=== PATIENT | female | born 1985 | race American Indian/Alaskan Native ===

== ENCOUNTER 2016-07-31 10:54 | Inpatient (IN) | payer OTHER ==
[~2016-07-31] VITALS: Ht 167.6 cm; Wt 87.5 kg
[2016-07-31] MEDS ORDERED: PRENAT PO (11:21)
[2016-07-31] MEDS ORDERED: RANI150T9 PO (11:22)
[2016-07-31 11:24] VITALS: BP 116/69; PULSE 82; RESP 20; Ht 167.6 cm; Wt 87.5 kg
[2016-07-31] MEDS ORDERED: TERBUTALINE 0 ML ONE (11:29)
[2016-07-31] MEDS ORDERED: TERBUTALINE 1 MG/ML INJ SC ONE (11:30)
[2016-07-31] MEDS ORDERED: LIDOCAINE 1% (MPF) 30 ML INJ INJ PRN (12:00)
[2016-07-31] MEDS ORDERED: LACTATED RINGER'S 1,000 ML IV ONE (12:00)
[2016-07-31] MEDS ORDERED: MISOPROSTOL 200 MCG TAB PR PRN (12:00)
[2016-07-31] MEDS ORDERED: OXYTOCIN 30 UNITS/LR 500 ML IV PRN (12:00)
[2016-07-31] MEDS ORDERED: IBUPROFEN 600 MG TAB PO PRN (12:00)
[2016-07-31] MEDS ORDERED: METHYLERGONOVINE 0.2 MG INJ IM PRN (12:00)
[2016-07-31] MEDS ORDERED: CARBOPROST 250 MCG INJ IM PRN (12:00)
[2016-07-31] MEDS ORDERED: LACTATED RINGER'S 1,000 ML IV PRN (12:15)
[2016-07-31 12:20] LABS: ADD SCAN DIFF NO
[2016-07-31 12:22] LABS: BASOPHILS % 0.4 % (0.0-2.0); EOSINOPHILS # 0.3 10^3/ul (0.0-0.5); EOSINOPHILS % 3.6 % (0.0-7.0); HEMATOCRIT 33.6 % (37.0-47.0); HEMOGLOBIN 12.2 g/dl (12.0-16.0); LYMPHOCYTES # 1.1 10^3/ul (0.8-2.9); LYMPHOCYTES % 13.3 % (15.0-51.0); MEAN CORPUSCULAR HEMOGLOBIN 33.4 pg (29.0-33.0); MEAN CORPUSCULAR HGB CONC 36.3 g/dl (32.0-37.0); MEAN CORPUSCULAR VOLUME 92.1 fl (82.0-101.0); MONOCYTE # 0.7 10^3/ul (0.3-0.9); MONOCYTES % 8.4 % (0.0-11.0); NEUTROPHIL # 6.1 10^3/ul (1.6-7.5); NEUTROPHILS % 73.8 % (39.0-77.0); PLATELET COUNT 177 10^3/UL (140-415); RED BLOOD COUNT 3.65 10^6/ul (4.20-5.40); RED CELL DISTRIBUTION WIDTH 13.1 % (11.5-14.5); WHITE BLOOD COUNT 8.2 10^3/ul (4.8-10.8)
[2016-07-31 12:26] LABS: INR 0.9; PROTIME 12.1 Sec (12.2-14.2); PT RATIO 0.9
[2016-07-31 12:27] LABS: PARTIAL THROMBOPLASTIN TIME 25.1 Sec (25.0-35.0)
--- NOTE | 2016-07-31 12:58 | RADRPT ---
PROCEDURE: Obstetrical ultrasound CLINICAL INDICATION: VARIABLES/POSSIBLE CAESAREAN SECTION TECHNIQUE: Multiple sonographic images of the pelvis were obtained. The images were reviewed on a PACS workstation. COMPARISON: None FINDINGS: The cervix is not well visualized. There is a single viable intrauterine gestation. Cardiac activity is present with 128 beats per minute. There is a cephalic presentation. The placenta is anterior. There is no evidence for an abruption or placenta previa. There is a subjectively normal amount of amniotic fluid. Measurements were made in order to determine age. The results are as follows (cm): BPD =8.66 HC =31.98 AC =34.20 FL =7.36 Estimated gestational age by ultrasound of approximately 36 weeks, 5 days. The estimated date of delivery by ultrasound is 08/23/2016. Estimated gestational age by LMP of approximately 38 weeks, 1 day. The estimated date of delivery by LMP is 08/13/2016. EFW = 3191 grams (42nd percentile) IMPRESSION: Single viable intrauterine gestation of approximately 36 weeks, 5 days . The estimated date of delivery is 08/23/2016 . Dating by ultrasound is within 10 days of dating by LMP. Cephalic presentation. Estimated weight is in the 42nd percentile. RPTAT: EE Physician Inessa Date Time Electronically viewed and signed by Physician Inessa on 07/31/2016 12:57 /
[2016-07-31] MEDS: LACTATED RINGER'S 1,000 ML IV SCH (13:12)
--- NOTE | 2016-07-31 13:29 | NSTRPT ---
NST Information Datetime Report Generated by CPN: 07/31/2016 13:29 Datetime: 07/31/2016 08:25 NST Information EGA: 38.1 Test Number: 5 Time on Monitor: 07/31/2016 08:43 Time off Monitor: 07/31/2016 10:33 NST Duration (Min): 110 Reason for NST: Diabetes Mellitus; Other Reason for NST Other: A1DM Test and Monitor Explained: Monitor Explained; Test Explained; Verbalized Understanding Pulse: 93 Resp: 18 SBP: 106 DBP: 74 Test Evaluation NST Interventions: Reposition Patient Contraction Frequency: Q5-10, PT STATES MILD FHR Baseline : 130 Variability: Moderate 6-25bpm Accelerations: 15X15 Decelerations: Variable FHR Category: Category II NST Results: Non-Reactive Comments: To u/s 11.4 CM, CEPH. AT BEDSIDE FOR VARIABLE TO 60 BPM FOR 4 MINUTES, PT MOVED FROM SONIA E TO SIDE, FHTS RETURN TO BASELINE WITH MOD VARIABLILITY AND ADDCELS TO FOLLOW. DR CARBALLO REVIED STR IP, RECOMMENDS EXTENDED MONITORING AND EVALUATE FOR LABOR, 1025-Report to woo Armendariz Dr's recommendations, orders received. POC discussed with pt, states understanding. Report called to Paulina SOTO, triage. 1045-Pt to triage, accomp by Lovely alvarez. Electronically Signed By E-Signature: with User ID: [id number], Addendum/Amendment: The majority of the heart rate pattern is reassuring. There is one decleration to 60bpm lasting, in total 6 minutes. Recommend prolonged monitoring, possible delivery if the dec eleration recurs or the patient progresses in labor Datetime: 07/27/2016 08:31 NST Information EGA: 37.4 NST Duration (Min): 24 Datetime: 07/25/2016 08:31 NST Information EGA: 37.2 NST Duration (Min): 26 Datetime: 07/20/2016 08:19 NST Information EGA: 36.4 NST Duration (Min): 20 Datetime: 07/17/2016 15:15 NST Information EGA: 36.1
--- NOTE | 2016-07-31 13:50 | HP ---
Date/Time of Note Date/Time of Note DATE: 07/31/16 TIME: 13:49 OB - History Hx of Present Free Text/Dictation @38+WKS GA WITH VARIABLES : 2 Para: 1 Care: Good Care Ultrasounds: Normal mid trimester US Obstetrical Complications: None Medical Complications: None Past Family/Social History * Past Medical, Surgical, Family and Obstetric Histories reviewed from chart. OB Admission Exam Vital Signs Vital Signs Vital Signs Date Time Temp Pulse Resp B/P Pulse Ox O2 Delivery O2 Flow Rate FiO2 07/31/16 11:24 98.7 82 20 116/69 Non Rebreather 15.0 Physical Exam Abdomen: WNL Extremities: Normal Membranes: Intact Heart Rate: 140's Accelerations: Accelerations Present Decelerations: Variable Decelerations Varibility: Moderate Contractions on Admission: >10 Minutes Apart Last 72 hours Lab Results CBC & BMP 07/31/16 11:30 OB Assessment/Plan Reason for admission: observation Plan: Expectant Management ANKUSH CONSTANTINO M.D. Jul 31, 2016 13:50
--- NOTE | 2016-07-31 15:01 | RADRPT ---
PROCEDURE: OB ultrasound for biophysical profile CLINICAL INDICATION: Labor. TECHNIQUE: Multiple sonographic images of the pelvis were obtained. Transabdominal view of the gr avid uterus are available for review. The images were reviewed on a PACS workstation. COMPARISON: OB ultrasound 07/31/2016. OB ultrasound 07/27/2016. FINDINGS: breathing movement = 2/2 tone = 2/2 motion = 2/2 HAYLEY = 2/2 HAYLEY = 8.5 cm Single live intrauterine with cardiac activity. heart rate equals 150 beats p er minute. Presentation is cephalic. The placenta is anterior. IMPRESSION: 1. Single viable intrauterine gestation. 2. Biophysical profile = 8/8. 3. HAYLEY = 8.5 cm. RPTAT: KK .Samuel Quiles MD, MD Date Time Electronically viewed and signed by .Samuel Quiles MD, MD on 07/31/2016 15:01 .B/
[2016-07-31] MEDS ORDERED: ACETAMINOPHEN 325 MG TAB PO PRN (16:00)
[2016-07-31] MEDS ORDERED: ALUMINUM HYDROXIDE 30 ML CUP PO PRN (16:30)
[2016-07-31] MEDS ORDERED: FENTAnyl 2MCG/ML-ROPIV 0.2% 100 ML ONE (23:03)
[2016-07-31] MEDS ORDERED: TERBUTALINE 1 ML ONE (23:17)
[2016-07-31] MEDS ORDERED: LIDOCAINE 2% (SDV) 5 ML INJ ONE (23:26)
[2016-07-31] MEDS ORDERED: CEFAZOLIN 1 GM INJ ONE (23:28)
[2016-07-31] MEDS ORDERED: OXYTOCIN 10 UNIT INJ ONE (23:32)
[2016-07-31] MEDS ORDERED: DEXAMETHASONE 4 MG/ML 1 ML INJ ONE (23:35)
[2016-07-31] MEDS ORDERED: ONDANSETRON 4 MG INJ ONE (23:35)
[2016-07-31] MEDS ORDERED: PHENYLephrine (100 MCG/ML) 5ML SYG ONE (23:35)
[2016-07-31] MEDS ORDERED: morphine SULFATE/PF (10 MG/10 ML) INJ ONE (23:35)
[2016-07-31] MEDS ORDERED: METOCLOPRAMIDE 10 MG INJ ONE (23:35)
[2016-07-31] MEDS ORDERED: KETOROLAC 30 MG INJ ONE (23:35)
[2016-08-01] MEDS ORDERED: HYDROmorphONE 1 MG/ML SYG IV PRN ×2
[2016-08-01] MEDS ORDERED: KETOROLAC 30 MG INJ IV PRN
[2016-08-01] MEDS ORDERED: NALOXONE (0.4 MG/ML) INJ IV PRN ×2
[2016-08-01] MEDS ORDERED: ACETAMINOPHEN 500 MG TAB PO PRN
[2016-08-01] MEDS ORDERED: morphine 4 MG/ML VIAL IV PRN
[2016-08-01] MEDS ORDERED: NALBUPHINE HCL (10 MG/1 ML) INJ IV PRN
[2016-08-01] MEDS ORDERED: morphine 2 MG INJ IV PRN
[2016-08-01] MEDS ORDERED: FENTAnyl 2MCG/ML-ROPIV 0.2% 100 ML BAG EPI SCH
[2016-08-01] MEDS ORDERED: HYDROCODONE/APAP (5/325) TAB PO PRN
[2016-08-01] MEDS ORDERED: PHENYLephrine (100 MCG/ML) 5ML SYG ONE (00:01)
--- NOTE | 2016-08-01 02:36 | QN ---
Documentation Comment preop note 30y.o A1(sab) at 38w1d was sent from antepartum test for extended observation for variable decelerations During the observation uterine activities noted , admitted for expectant mangement called for evaluation for prolonged variable deceleration down to 70's for 4min VE 3-4cm70%-2 post membrane bulging labor epidural was given , right after epidural given , another episode of prolonged deceleration down to 60's continuosly failed to return. emergency primary section was called. PERRY CHAUDHARI MD Aug 01, 2016 02:36
[2016-08-01] MEDS: DIPHENHYDRAMINE 50 MG INJ IV PRN ×2 (02:56→07:26)
--- NOTE | 2016-08-01 03:10 | PREOPHP ---
DATE OF ADMISSION: 07/31/2016 HISTORY OF PRESENT ILLNESS: This is a 30-year-old 3, para 1, abortus 1 which was spontaneou s, expected date of confinement was 08/14/2015. She was sent from the antepartum test room for the variable deceleration for the extended observation. During the observation, external monitor reveal ed was having contractions. The patient was transferred to the L and D. After the patient was wilkerson sferred to the L and D, there was profound deceleration down to 60s approximately 4 minutes and then recovered and maintain the baseline. Another small episode and the cervical examination revealed a t that time 3 to 4 cm, about 70% effaced, -2 and the cervix was posterior and then a couple of hours later, the patient had another episode of variable deceleration this time down to 60s and did not c ome up to the baseline actually, it was a prolonged variable deceleration profound, and the emergenc y section was called, and consent was obtained and the primary section was prepare d for the category 3. Dictated By: MARIO THOMAS/ML Conf#: [id number] DID#: [id number]
--- NOTE | 2016-08-01 03:26 | OPR ---
DATE OF OPERATION: 07/31/2016 PREOPERATIVE DIAGNOSIS: , 38 weeks 1 day, category 3. POSTOPERATIVE DIAGNOSIS: Delivered normal male , 8 and 9. OPERATION PROCEDURE: Primary low transverse section. ANESTHESIA: Epidural. ANESTHESIOLOGIST: Dr. Acevedo SURGEON: Nataly Friedman MD [employer]ICING CONSULTANT: Dr. Marlow ESTIMATED BLOOD LOSS: Approximately 700 mL PROCEDURE: The patient was taken to the OR in the emergency right after the epidural was given for the labor epidural and the heartbeat went down to 60s and did not recover. The patient was taken to the OR immediately, and emergency primary section was prepared. After the Mendez was inser home and abdominal wall was prepped with Betadine solution and draped, low Pfannenstiel incision was made. The incision was carried down through the subcutaneous tissue to the anterior recti fascia wh ich was incised transversely in length of the incision. The fascial flap was created and 2 rectus m uscles split in midline. The peritoneal cavity was entered. The low portion of the uterus was expo sed, and the transverse incision was made above the uterovesical reflection and carried down layer b y layer until reached the amniotic membrane and revealing clear amniotic fluid in moderate amount. A normal male infant was born in left occiput transverse position. Mouth and nose were cleaned, del ayed cord clamp done, and handed to the respiratory care personnel for further care. There was no c ord tangled around the neck. Only appeared to have a loop of cord that was between the length. The placenta was removed after cord blood was obtained, and then uterus was exteriorized and the uterin e cavity was explored. The uterine incision was closed using #1 chromic catgut in continuous interl ocking manner and second layer using 0 chromic catgut. There were multiple areas of bleeding. The sinus was really big, and each time the uterine rent started bleeding, even on the right aspect of t he incision, it was closed multiple times to control the bleeding. The uterus was relocated in the abdominal cavity after the incision was closed and rechecked for the bleeders. There was a little o ozing which was delivered out again and we controlled with additional suture. Abdominal cavity was irrigated and sponge count correct. The parietal peritoneum was closed using 0 chromic catgut in co ntinuous manner, muscle closed with 0 chromic catgut in continuous manner. Fascia closed with #1 Vi cryl in 2 segments. The subcutaneous tissue was irrigated with water. This layer was approximated with a 2-0 plain. Skin closed with Insorb. Pressure dressing applied. Estimated blood loss approx imately 700 mL. The patient withstood procedure well and was sent to recovery room in good conditio n. Dictated By: NATALY THOMAS/ML Conf#: [id number] DID#: [id number]
[2016-08-01] MEDS: LACTATED RINGER'S 1,000 ML IV SCH ×3 (04:31→21:30)
[2016-08-01 05:00] VITALS: BP 110/75; PULSE 81; RESP 18
--- NOTE | 2016-08-01 05:16 | OPPN ---
Date/Time of Note Date/Time of Note DATE: 08/01/16 TIME: 05:16 Post-Anesthesia Notes Post-Anesthesia Note Last documented vital signs Vital Signs Date Time Temp Pulse Resp B/P Pulse Ox O2 Delivery O2 Flow Rate FiO2 07/31/16 11:24 98.7 82 20 116/69 Non Rebreather 15.0 Activity: WNL Respiratory function: WNL Cardiovascular function: WNL Mental status: Baseline Pain reasonably controlled: Yes Hydration appropriate: Yes Nausea/Vomiting absent: Yes OLIVE POWERS MD Aug 01, 2016 05:16
[2016-08-01] MEDS ORDERED: ZOLPIDEM 5 MG TAB PO PRN (06:00)
[2016-08-01] MEDS ORDERED: CARBOPROST 250 MCG INJ IM PRN (06:00)
[2016-08-01] MEDS ORDERED: LANOLIN 7 GM TUBE TOP PRN (06:00)
[2016-08-01] MEDS ORDERED: METHYLERGONOVINE 0.2 MG INJ IM PRN (06:00)
[2016-08-01] MEDS ORDERED: OXYTOCIN 30 UNITS/LR 500 ML IV PRN (06:00)
[2016-08-01] MEDS ORDERED: MISOPROSTOL 200 MCG TAB PR PRN (06:00)
[2016-08-01] MEDS: CEFAZOLIN 2 GM/50 ML (PMX) 50 ML IVPB SCH ×2 (06:43→13:32)
[2016-08-01 08:00] VITALS: BP 109/51; PULSE 97; RESP 18
[2016-08-01] MEDS: SENNA/DOCUSATE NA (8.6MG/50MG) TAB PO SCH ×2 (08:57→20:10)
[2016-08-01 12:00] VITALS: BP 110/52; PULSE 86; RESP 18
[2016-08-01] MEDS: KETOROLAC 30 MG INJ IV PRN ×2 (13:43→20:10)
[2016-08-01 16:00] VITALS: BP 99/53; PULSE 88; RESP 18
--- NOTE | 2016-08-01 17:54 | PN ---
Date/Time of Note Date/Time of Note DATE: 08/01/16 TIME: 17:52 OB Subjective Subjective Subjective Post day 1 Afebrile vital signs stable abdomen mildly distended bowel sounds present lochia moderate incision seems to be dry extremity normal ambulation encouraged TOM MCCRAY MD Aug 01, 2016 17:53
[2016-08-01 20:00] VITALS: BP 101/64; PULSE 101; RESP 18
[2016-08-01] MEDS: RANITIDINE 150 MG TAB PO SCH (21:46)
[2016-08-01] MEDS ORDERED: ONDANSETRON 4 MG INJ IV PRN ×2 (23:32)
[2016-08-01] MEDS ORDERED: DIPHENHYDRAMINE 50 MG INJ IV PRN (23:32)
[2016-08-01] MEDS: OXYCODONE/ACETAMINOPHEN (5/325) TAB PO PRN (23:36)
[2016-08-02] MEDS: OXYCODONE/ACETAMINOPHEN (5/325) TAB PO PRN ×5 (03:42→20:37)
[2016-08-02 04:08] VITALS: BP 102/69; PULSE 93; RESP 18
[2016-08-02] MEDS: LACTATED RINGER'S 1,000 ML IV SCH ×2 (05:30→13:30)
[2016-08-02] MEDS: IBUPROFEN 600 MG TAB PO SCH ×5 (05:38→23:57)
[2016-08-02 07:54] LABS: ADD SCAN DIFF NO
[2016-08-02 08:06] LABS: BASOPHILS % 0.3 % (0.0-2.0); EOSINOPHILS # 0.1 10^3/ul (0.0-0.5); HEMOGLOBIN 8.4 g/dl (12.0-16.0); LYMPHOCYTES # 0.9 10^3/ul (0.8-2.9); LYMPHOCYTES % 10.5 % (15.0-51.0); MEAN CORPUSCULAR HEMOGLOBIN 32.1 pg (29.0-33.0); MEAN CORPUSCULAR HGB CONC 33.6 g/dl (32.0-37.0); MEAN CORPUSCULAR VOLUME 95.4 fl (82.0-101.0); MONOCYTE # 0.8 10^3/ul (0.3-0.9); MONOCYTES % 8.9 % (0.0-11.0); NEUTROPHIL # 7.1 10^3/ul (1.6-7.5); PLATELET COUNT 146 10^3/UL (140-415); RED BLOOD COUNT 2.62 10^6/ul (4.20-5.40); RED CELL DISTRIBUTION WIDTH 13.2 % (11.5-14.5)
[2016-08-02 08:13] VITALS: BP 88/55; PULSE 84; RESP 20
[2016-08-02] MEDS: RANITIDINE 150 MG TAB PO SCH ×2 (11:05→21:47)
[2016-08-02] MEDS: SENNA/DOCUSATE NA (8.6MG/50MG) TAB PO SCH ×2 (11:05→20:37)
[2016-08-02 12:00] VITALS: BP 102/63; PULSE 86; RESP 18
--- NOTE | 2016-08-02 13:08 | PN ---
Date/Time of Note Date/Time of Note DATE: 08/02/16 TIME: 13:07 OB Subjective Subjective Subjective day 2 Afebrile abdomen soft bowel sounds present able to pass flatus no bowel movement extremities normal incision dry. TOM MCCRAY MD Aug 02, 2016 13:08
[2016-08-02] MEDS ORDERED: NA PHOSPHATE/BIPHOS 133 ML ENEMA PR ONE (13:30)
[2016-08-02 16:00] VITALS: BP 120/65; PULSE 75; RESP 18
[2016-08-02 20:37] VITALS: BP 103/56; PULSE 99; RESP 18
[2016-08-03] MEDS: OXYCODONE/ACETAMINOPHEN (5/325) TAB PO PRN ×4 (01:24→17:59)
[2016-08-03 04:03] VITALS: BP 97/49; PULSE 86; RESP 18
[2016-08-03] MEDS: IBUPROFEN 600 MG TAB PO SCH ×4 (05:32→19:55)
[2016-08-03 08:00] VITALS: BP 109/59; PULSE 82; RESP 18
[2016-08-03] MEDS: SENNA/DOCUSATE NA (8.6MG/50MG) TAB PO SCH (09:25)
[2016-08-03] MEDS: RANITIDINE 150 MG TAB PO SCH (09:25)
--- NOTE | 2016-08-03 15:42 | PD.PPDC ---
LICENSED FUNERAL DIRECTOR Discharge Instruction Condition Patient Condition: Stable Activity/Restrictions Activity: Normal Activity May Shower Restrictions: No Exercising No Lifting No Driving No Sexual Activity Nothing in the Vagina No [place] No Tampons, douche Wound/Drain Care Instructions Wound/Drain Care Instructions: Remove Steri Strips in 1 week Follow-up Follow-up with Physician: 4, Day/Days Provider Information: Appointment clinic in 4 days to discontinue jus patient received extensive instructions and care of wound Return to clinic for TAFFY PULLER Instructions: Fever greater than 101 Chills Worsening abdominal pain Excessive Vaginal Bleeding More than 2 pads per hour Unable to tolerate diet OB Instructions: Breast Tenderness Depression Blurried Vision Headache Surgical Instructions: Incisional Drainage Incisional Redness TOM MCCRAY MD Aug 03, 2016 15:42
--- NOTE | 2016-08-03 15:48 | DS ---
Date/Time of Note Date/Time of Note DATE: 08/03/16 TIME: 15:46 Discharge Summary Admission/Discharge Info Admit Date/Time Jul 31, 2016 at 11:30 Discharge Date/Time August 03, 2016 at 1555 Discharge Diagnosis Post date 3 Patient Condition: Good Procedures Primary section due to category 3 heart tracing Hx of Present Illness Term , category 3 heart tracing during the labor patient had primary Hospital Course Satisfactory uneventful Home Meds Reported Medications Ranitidine Hcl* (Zantac*) 150 Mg Tablet, 150 MG PO BID, #60 TAB 07/31/16 Multivit/Min/Fol Ac/Iron/Pren* ( S*) 1 Tab Tab, 1 TAB PO DAILY, TAB 07/31/16 Primary Care Provider [facility] Time spent on discharge: < 30 minutes TOM MCCRAY MD Aug 03, 2016 15:48
[2016-08-03 16:00] VITALS: BP 109/64; PULSE 94; RESP 18
--- NOTE | 2016-08-03 16:45 | QN ---
Documentation Comment Under sterile condition with sign consent circumcision performed using Gomco 1.1 no bleeding post circumcision instructions given to the mother. TOM MCCRAY MD Aug 03, 2016 16:45
[2016-08-03] MEDS ORDERED: VITAMIN A & D 5 GM OINT PACKET TOP ONE (20:45)
[2016-08-04] MEDS ORDERED: DIPHTH/TET/ACEL PERTUSS (ADULT) 0.5 ML VIAL IM* ONE (09:00)
== END 2016-08-03 21:00 | disposition home or self-care (01) | DRG 766 ==
LOC: OBT 10:54 → L-D 10:55 → OBT 11:30 → L-D 11:30 → PP1 08-01 04:59
PROVIDERS: ADMIT Obstetrics & Gynecology; ATTEND Obstetrics & Gynecology
PROC: 10D00Z1 Extraction of Products of Conception, Low, Open Approach (ICD-10-PCS; principal; 2016-08-01)
DX: O76 Abnormality in fetal heart rate and rhythm complicating labor and delivery (principal); Z37.0 Single live birth; Z3A.38 38 weeks gestation of pregnancy
CPT/HCPCS: 62319; 76816; 76818; 85025; 85610; 85730; 86592; 86900; 86901; 87340; 94760; 96360; G0463; J0690; J1100; J1200; J1885; J2274; J2370; J2405; J2590; J2765; J3010; J3105; J7120